=== PATIENT | male | born 1960 | race Caucasian/White ===

== ENCOUNTER 2017-03-27 12:00 | Observation (INO) | payer BC ==
[~2017-03-27] VITALS: Ht 175.3 cm; Wt 72.6 kg
--- NOTE | ~2017-03-27 | EKG ---
[address] [place] [address] ELECTROCARDIOGRAM REPORT Name: SALLY WOODARD Room #: 205-P [facility] M.R.#: [id number] Admission: 03/27/17 Attend Phys: Elia Jacob Discharge: Date of : 58 Report #: [id number] THIS REPORT FOR: //name// [facility] ED Test Date: 2017-03-27 Test Time: 12:02:17 Pat Name: SALLY WOODARD Department: Room: 205 Gender: M Flight Attendant Ramp: [facility] : 1960 Requested By: Dave Sims Order Number: [id number] MD: Uzair Grimes Measurements Intervals [place] Rate: 68 P: 59 OK: 92 QRS: 34 QRSD: 104 T: 74 QT: 419 QTc: 446 Interpretive Statements Sinus rhythm Short OK interval Probable left atrial enlargement Probable anteroseptal infarct, old No previous ECG available for comparison Electronically Signed On 03-28-2017 9:41:28 CDT by Uzair Grimes [email or web address] <ELECTRONICALLY SIGNED> By: Uzair Grimes MD, [facility] 03/28/17 0941 1202 01 Uzair Grimes MD, FACC /EPI
[2017-03-27 12:01] VITALS: BP 128/108
[2017-03-27 12:38] LABS: HEMATOCRIT 46.7 % (42.0-52.0); HEMOGLOBIN 15.9 gm/dL (14.0-18.0); MCH 31.9 pg (26.0-34.0); MCHC 34.1 g/dL (28.0-37.0); MCV 93.5 fL (80.0-100.0); PLATELET COUNT 264 thou/uL (150-400); RBC 4.99 mil/uL (4.50-6.00); RDW 13.5 % (10.5-14.5); WBC 9.5 thou/uL (4.0-11.0)
[2017-03-27 12:39] LABS: MANUAL DIFF YES
[2017-03-27 12:43] LABS: ANION GAP 10 mmol/L (7-16); BUN 19 mg/dL (7-18); CALCIUM 9.1 mg/dL (8.5-10.1); CHLORIDE 104 mmol/L (98-107); CO2 25 mmol/L (21-32); CREATININE 1.2 mg/dL (0.7-1.3); GLUCOSE 87 mg/dL (74-106); POTASSIUM 4.3 mmol/L (3.5-5.1); SODIUM 139 mmol/L (136-145)
[2017-03-27 12:51] LABS: ALBUMIN 3.5 g/dL (3.4-5.0); ALKALINE PHOSPHATASE 133 U/L (46-116); SGOT 23 U/L (15-37); SGPT 21 U/L (30-65); TOTAL BILIRUBIN 0.6 mg/dL (<0.1-1.0); TOTAL PROTEIN 6.9 g/dL (6.4-8.2); TROPONIN-I < 0.04 ng/mL (<0.04-0.07)
[2017-03-27 12:52] LABS: APTT 27.8 Seconds (24.5-32.8); PROTIME 10.1 Seconds (9.3-11.4)
[2017-03-27 12:56] LABS: MAGNESIUM 1.9 mg/dL (1.8-2.4)
[2017-03-27 13:07] LABS: ABSOLUTE NEUTROPHILS 8.7 thou/uL (1.4-8.2); PLATELET ESTIMATE NORMAL; TOTAL CELL COUNT 100
[2017-03-27 14:58] VITALS: BP 150/102
[2017-03-27 16:05] VITALS: BP 139/100
[2017-03-27 19:53] VITALS: BP 160/116
[2017-03-27 23:18] VITALS: BP 149/110
[2017-03-28 03:47] VITALS: BP 150/103
[2017-03-28 04:01] LABS: ANION GAP 6 mmol/L (7-16); BUN 15 mg/dL (7-18); CALCIUM 8.4 mg/dL (8.5-10.1); CHLORIDE 104 mmol/L (98-107); CO2 25 mmol/L (21-32); CREATININE 0.9 mg/dL (0.7-1.3); GLUCOSE 88 mg/dL (74-106); PHOSPHORUS 3.1 mg/dL (2.5-4.9); POTASSIUM 4.1 mmol/L (3.5-5.1); SODIUM 135 mmol/L (136-145); TROPONIN-I < 0.04 ng/mL (<0.04-0.07)
[2017-03-28 08:19] VITALS: BP 148/112
[2017-03-28 15:48] VITALS: BP 134/90
[2017-03-28 16:59] VITALS: BP 134/90
== END 2017-03-28 17:22 | disposition home or self-care (01) ==
LOC: ER 12:00 → 2N 12:49 → EROBS 12:49 → 2N 16:04
PROVIDERS: Emergency Medicine; Hospitalist
DX: R07.9 Chest pain, unspecified (principal); I10 Essential (primary) hypertension; F17.210 Nicotine dependence, cigarettes, uncomplicated